=== PATIENT | female | born 1975 | race American Indian/Alaskan Native ===

== ENCOUNTER 2016-05-17 16:48 | Outpatient (CLI) | payer OTHER ==
--- NOTE | 2016-05-17 18:41 | Ultrasound Report ---
FINAL REPORT PROCEDURE: US RENAL RT TECHNIQUE: Real-time sonography in multiple planes of the kidneys, ureters and urinary bladder was performed with image documentation. CPT 11973 HISTORY: HYDRONEPHROSIS COMPARISON: No prior studies are available for comparison. FINDINGS: RIGHT kidney: There is moderate hydronephrosis, with dilatation of the renal pelvis and calices. Renal cortex measures 1.6 centimeters in thickness. Right kidney measures 13.6 x 6.0 x 6.0 centimeters. LEFT kidney: Absent. IMPRESSION: Moderate right hydronephrosis. Absent left kidney.
--- NOTE | 2016-05-17 18:44 | Ultrasound Report ---
FINAL REPORT PROCEDURE: US BLADDER RESIDUAL TECHNIQUE: Real-time sonography in multiple planes of the bladder was performed with image documentation. CPT 30474 HISTORY: HYDRONEPHROSIS COMPARISON: No prior studies are available for comparison. FINDINGS: Bladder: Normal appearance Volume Pre-void: 391 mL Volume Post-void: 15 mL Note is made of a prominent sized uterus. There is a central rounded hypoechoic mass with internal vascularity which measures 8.9 x 7.8 x 9.2 centimeters. This could be related to a large fibroid or other uterine mass. Recommend further evaluation. IMPRESSION: Postvoid volume is 15 milliliters. Large solid central uterine mass, which could be related to a submucosal fibroid or other uterine mass. Recommend further evaluation/gynecologic follow-up.
== END 2016-05-17 16:49 | disposition home or self-care (01) ==
LOC: US 16:48
PROVIDERS: ATTEND Internal Medicine Nephrology
DX: N13.30 Unspecified hydronephrosis (principal); N85.8 Other specified noninflammatory disorders of uterus; Z90.5 Acquired absence of kidney
CPT/HCPCS: 76775; 76857

== ENCOUNTER 2016-10-11 07:12 | Outpatient (CLI) | payer OTHER ==
--- NOTE | 2016-10-11 09:03 | Mammography Report ---
BILATERAL DIGITAL SCREENING MAMMOGRAM with CAD: 10/11/16 07:12:00 CLINICAL: Baseline screening. FINDINGS: The breasts are heterogeneously dense, which may obscure small masses. No mass, architectural distortion or suspicious calcifications. IMPRESSION: No mammographic evidence of malignancy. BI-RADS CATEGORY: 1 - - Negative RECOMMENDATION: Routine mammographic screening in one year. COMMENT: Patient follow-up letters are generated by our [employer] application.
== END 2016-10-11 07:13 | disposition home or self-care (01) ==
LOC: MAMMO 07:12
PROVIDERS: ATTEND Obstetrics & Gynecology
DX: Z12.31 Encounter for screening mammogram for malignant neoplasm of breast (principal)
CPT/HCPCS: 77067; G0202

== ENCOUNTER 2019-01-05 12:37 | Emergency (ER) | payer OTHER ==
[2019-01-05 12:43] VITALS: BP 144/85
--- NOTE | 2019-01-05 12:48 | Event Note ---
ED Screening Note Date of service: 01/05/19 Time: 12:45 ED Screening Note: This is a 43 y.o. F. that presents to the ER with right ankle pain for 1 month that is worsening. Patient states she fell 1 month ago. Reports a pulling sensation to right lateral ankle that is worse with weight. Taking NSAIDs, warm soaks, and ankle brace. This initial assessment/diagnostic orders/clinical plan/treatment(s) is/are subject to change based on patients health status, clinical progression and re-assessment by fellow clinical providers in the ED. Further treatment and workup at subsequent clinical providers discretion. Patient/guardian urged not to elope from the ED as their condition may be serious if not clinically assessed and managed. Initial orders include: XR of right ankle
--- NOTE | 2019-01-05 13:24 | XRay Report ---
RIGHT ANKLE 3 VIEWS INDICATION: lateral swelling and pain, r/o fx. COMPARISON: No relevant prior imaging study available. FINDINGS: No acute fracture or dislocation is seen. There is no ankle mortise widening. There is a thin linear foreign body which projects within the proximal first metatarsal. This could be related to prior surg gracia, correlate clinically. There is mild anterior soft tissue swelling. IMPRESSION: 1. No acute findings. Signer Name: Hernandez Torrez MD Signed: 01/05/2019 1:19 PM Workstation Name: [id number]
--- NOTE | 2019-01-05 13:38 | Emergency Department Report ---
ED Extremity Problem HPI - General Chief complaint: Extremity Injury, Lower Stated complaint: RT ANKLE PAIN Time Seen by Provider: 01/05/19 12:45 Source: patient Mode of arrival: Wheelchair Limitations: No Limitations - History of Present Illness Initial comments: Patient is a 43-year-old [place] female who states that for the past 2 month she's had some discomfort in the right ankle. Patient states feels unsteady. Patient states she fell approximately 3 weeks ago and the pain is worsened as well as her swelling. Patient states she can bear weight but there is pain. Patient states the pain is 8 out of 10 in severity and is aching throbbing is worse with bearing weight movement and better with rest. Patient states she is been icing the ankle (the pain will subside but however it has not. She has a fracture after the fall she suffered 3 weeks ago. - Related Data Home Medications Medication Instructions Recorded Confirmed Last Taken Folic Acid [Folvite] 1 mg PO QDAY 12/05/17 12/05/17 1 Day Ago ~12/04/17 [place]-3/Dha/Epa/Fish Oil [Fish Oil 1 each PO QDAY 12/05/17 12/05/17 Unknown 1,000 mg Softgel] PARoxetine [Paxil] 20 mg PO DAILY 12/05/17 12/05/17 1 Day Ago ~12/04/17 Ubidecarenone/Vit E Acet [Co Q-10 1 each PO QDAY 12/05/17 12/05/17 1 Day Ago 100 mg Softgel] ~12/04/17 Previous Rx's Medication Instructions Recorded Last Taken Type ALPRAZolam [Xanax TAB] 0.5 mg PO BID PRN #14 tab 12/05/17 Unknown Rx Ibuprofen [Motrin 600 MG tab] 600 mg PO Q8H PRN #20 tablet 01/05/19 Unknown Rx Allergies Allergy/AdvReac Type Severity Reaction Status Date / Time sulfamethoxazole Allergy Shortness Verified 12/05/17 03:45 [From Bactrim] of Breath trimethoprim [From Bactrim] Allergy Shortness Verified 12/05/17 03:45 of Breath ED Review of Systems ROS: Stated complaint: RT ANKLE PAIN Other details as noted in HPI Comment: All other systems reviewed and negative ED Past Medical Hx - Past Medical History Previous Medical History?: Yes Hx Renal Disease: Yes (right kidney stent, left kidney remove when she was kid) Hx Psychiatric Treatment: Yes (anxiety) Additional medical history: Right ankle pain - Surgical History Past Surgical History?: Yes Additional Surgical History: renal stent. left nephrectomy secondary to cysts, Partial hysterectomy - Social History Smoking Status: Never Smoker Substance Use Type: Prescribed - Medications Home Medications: Home Medications Medication Instructions Recorded Confirmed Last Taken Type ALPRAZolam [Xanax TAB] 0.5 mg PO BID PRN #14 tab 12/05/17 Unknown Rx Folic Acid [Folvite] 1 mg PO QDAY 12/05/17 12/05/17 1 Day Ago History ~12/04/17 [place]-3/Dha/Epa/Fish Oil [Fish Oil 1 each PO QDAY 12/05/17 12/05/17 Unknown History 1,000 mg Softgel] PARoxetine [Paxil] 20 mg PO DAILY 12/05/17 12/05/17 1 Day Ago History ~12/04/17 Ubidecarenone/Vit E Acet [Co Q-10 1 each PO QDAY 12/05/17 12/05/17 1 Day Ago History 100 mg Softgel] ~12/04/17 Ibuprofen [Motrin 600 MG tab] 600 mg PO Q8H PRN #20 tablet 01/05/19 Unknown Rx ED Physical Exam - General Limitations: No Limitations General appearance: alert, in no apparent distress - Head Head exam: Present: atraumatic, normocephalic - Eye Eye exam: Present: normal appearance, PERRL, EOMI - ENT ENT exam: Present: mucous membranes moist - Neck Neck exam: Present: normal inspection - Respiratory Respiratory exam: Present: normal lung sounds bilaterally. Absent: respiratory distress, wheezes, rales, rhonchi - Cardiovascular Cardiovascular Exam: Present: regular rate, normal rhythm. Absent: systolic murmur, diastolic murmur, rubs, gallop - GI/Abdominal GI/Abdominal exam: Present: soft, normal bowel sounds - Extremities Exam Extremities exam: Present: normal inspection - Expanded Lower Extremity Exam Right Knee exam: Present: normal inspection, full ROM Ankle exam: Present: tenderness, swelling. Absent: normal inspection, full ROM, abrasion, laceration, ecchymosis, deformity, crepidus, dislocation, erythema - Back Exam Back exam: Present: normal inspection - Neurological Exam Neurological exam: Present: alert, oriented X3 - Psychiatric Psychiatric exam: Present: normal affect, normal mood - Skin Skin exam: Present: warm, dry, intact, normal color. Absent: rash ED Course Vital Signs 01/05/19 12:40 Temperature 97.9 F Pulse Rate 73 Respiratory 18 Rate Blood Pressure 144/85 O2 Sat by Pulse 97 Oximetry ED Medical Decision Making - Radiology Data Radiology results: report reviewed - Medical Decision Making Patient placed in a air cast with Reynaldo wrap the patient be referred to orthopedics. Critical care attestation.: If time is entered above; I have spent that time in minutes in the direct care of this critically ill patient, excluding procedure time. ED Disposition Clinical Impression: Ankle sprain Qualifiers: Encounter type: initial encounter Involved ligament of ankle: anterior talofibular ligament Disposition: TO HOME OR SELFCARE Is pt being admited?: No Does the pt Need Aspirin: No Condition: Stable Instructions: Ankle Sprain (ED), Ankle Stirrup Splint (ED) Referrals: KEVIN ARCHIBALD MD [Staff Physician] - 3-5 Days Time of Disposition: 13:37
== END 2019-01-05 14:44 | disposition home or self-care (01) ==
LOC: ED 12:37
DX: S93.401A Sprain of unspecified ligament of right ankle, initial encounter (principal); F41.9 Anxiety disorder, unspecified; W18.30XA Fall on same level, unspecified, initial encounter; Y93.89 Activity, other specified; Y92.89 Other specified places as the place of occurrence of the external cause; Y99.8 Other external cause status

== ENCOUNTER 2019-04-27 23:25 | Emergency (ER) | payer OTHER ==
[2019-04-28] MEDS ORDERED: ACETAMINOPHEN 500 MG TAB PO ONE (01:06)
[2019-04-28 01:50] LABS: Basophils % (Auto) 0.4 % (0.0-1.8); Eosinophils # (Auto) 0.3 K/mm3 (0.0-0.4); Eosinophils % (Auto) 2.8 % (0.0-4.3); Hemoglobin 13.3 gm/dl (10.1-14.3); Lymphocytes # (Auto) 2.9 K/mm3 (1.2-5.4); Lymphocytes % (Auto) 30.4 % (13.4-35.0); Mean Corpuscular HGB Conc 35 % (30-34); Mean Corpuscular Volume 91 fl (79-97); Monocytes # (Auto) 0.6 K/mm3 (0.0-0.8); Monocytes % (Auto) 6.4 % (0.0-7.3); Platelet Count 270 K/mm3 (140-440); Red Blood Count 4.19 M/mm3 (3.65-5.03); Red Cell Distribution Width 13.6 % (13.2-15.2)
[2019-04-28 02:12] LABS: Alanine Aminotransferase 17 units/L (7-56); Albumin 3.9 g/dL (3.9-5); BUN/Creatinine Ratio 20; Blood Urea Nitrogen 16 mg/dL (7-17); Calcium 9.3 mg/dL (8.4-10.2); Hemolysis Index 9
[2019-04-28 02:40] LABS: Bacteria,Urine 1+ /HPF (Negative); Bilirubin,Urine NEG (Negative); Blood,Urine NEG (Negative); Color,Urine Straw (Yellow); Protein,Urine <15 mg/dL mg/dL (Negative); Urobilinogen,Urine < 2.0 mg/dL (<2.0); WBC,Urine < 1.0 /HPF (0.0-6.0)
--- NOTE | 2019-04-28 02:40 | XRay Report ---
CHEST 2 VIEWS INDICATION: Cough. COMPARISON: 12/04/2017 FINDINGS: Support devices: None. Heart: Within normal limits. Lungs/pleura: No acute air space or interstitial disease. No pneumothorax. Additional findings: None. IMPRESSION: 1. No acute findings. Signer Name: Bernardino Castrejon MD Signed: 04/28/2019 2:35 AM Workstation Name: [email or web address]
--- NOTE | 2019-04-28 08:05 | Emergency Department Report ---
- General Chief Complaint: Chest Pain Stated Complaint: CHEST PAIN/NAUSEA/SORE THROAT Time Seen by Provider: 04/28/19 07:24 Source: patient Mode of arrival: Ambulatory Limitations: No Limitations - History of Present Illness Initial Comments: This is a 44-year-old female nontoxic, well nourished in appearance, no acute signs of distress presents to the ED with c/o of productive cough, fever, chills, body aches, sore throat, rhinorrhea, nasal congestion x4 days. Patient stated has chest pains while coughing. Patient describes productive cough as yellow mucus production. Patient denies any sick contacts. Patient denies any recent travels, long car, recent hospital stays. Patient denies any calf pain or calf tenderness. Patient denies any chest pain, short of breath, nausea, vomiting, hemoptysis, numbness, tingling, headache or stiff neck. Patient stated allergies to Bactrim. MD Complaint: fever, cough, sore throat, rhinorrhea, nasal congestion -: days(s) (4) Severity: mild Severity scale (0 -10): 8 Quality: aching Consistency: constant Improves With: nothing Worsens With: nothing Associated Symptoms: fever, chills, rhinorrhea, nasal congestion, sore throat, cough. denies: myalgias, diaphoresis, headache, stiff neck, chest pain, shortn ess of breath, abdominal pain, nausea, vomiting, diarrhea, dysuria, rash, confusion, right sweats, weight loss, epistaxis, hoarseness, ear pain Treatments Prior to Arrival: none - Related Data Home Medications Medication Instructions Recorded Confirmed Last Taken Folic Acid [Folvite] 1 mg PO QDAY 12/05/17 12/05/17 1 Day Ago ~12/04/17 [place]-3/Dha/Epa/Fish Oil [Fish Oil 1 each PO QDAY 12/05/17 12/05/17 Unknown 1,000 mg Softgel] PARoxetine [Paxil] 20 mg PO DAILY 12/05/17 12/05/17 1 Day Ago ~12/04/17 Ubidecarenone/Vit E Acet [Co Q-10 1 each PO QDAY 12/05/17 12/05/17 1 Day Ago 100 mg Softgel] ~12/04/17 Previous Rx's Medication Instructions Recorded Last Taken Type ALPRAZolam [Xanax TAB] 0.5 mg PO BID PRN #14 tab 12/05/17 Unknown Rx Ibuprofen [Motrin 600 MG tab] 600 mg PO Q8H PRN #20 tablet 01/05/19 Unknown Rx Azithromycin [Zithromax Z-PEPITO] 250 mg PO DAILY #6 tablet 04/28/19 Unknown Rx Benzonatate [Tessalon Perles] 100 mg PO Q8HR PRN #20 capsule 04/28/19 Unknown Rx Ibuprofen [Motrin] 600 mg PO Q8H PRN #20 tablet 04/28/19 Unknown Rx Allergies Allergy/AdvReac Type Severity Reaction Status Date / Time sulfamethoxazole Allergy Shortness Verified 12/05/17 03:45 [From Bactrim] of Breath trimethoprim [From Bactrim] Allergy Shortness Verified 12/05/17 03:45 of Breath ED Review of Systems ROS: Stated complaint: CHEST PAIN/NAUSEA/SORE THROAT Other details as noted in HPI Constitutional: chills, fever Eyes: denies: eye pain, eye discharge, vision change ENT: ear pain, throat pain, congestion Respiratory: cough. denies: shortness of breath, wheezing Cardiovascular: chest pain. denies: palpitations Endocrine: no symptoms reported Gastrointestinal: denies: abdominal pain, nausea, diarrhea Genitourinary: denies: urgency, dysuria, discharge Musculoskeletal: denies: back pain, joint swelling, arthralgia Skin: denies: rash, lesions Neurological: denies: headache, weakness, paresthesias Psychiatric: denies: anxiety, depression Hematological/Lymphatic: denies: easy bleeding, easy bruising ED Past Medical Hx - Past Medical History Previous Medical History?: Yes Hx Renal Disease: Yes (right kidney stent, left kidney remove when she was kid) Hx Psychiatric Treatment: Yes (anxiety) Additional medical history: Right ankle pain - Surgical History Past Surgical History?: Yes Additional Surgical History: renal stent. left nephrectomy secondary to cysts, Partial hysterectomy - Social History Smoking Status: Never Smoker - Medications Home Medications: Home Medications Medication Instructions Recorded Confirmed Last Taken Type ALPRAZolam [Xanax TAB] 0.5 mg PO BID PRN #14 tab 12/05/17 Unknown Rx Folic Acid [Folvite] 1 mg PO QDAY 12/05/17 12/05/17 1 Day Ago History ~12/04/17 [place]-3/Dha/Epa/Fish Oil [Fish Oil 1 each PO QDAY 12/05/17 12/05/17 Unknown History 1,000 mg Softgel] PARoxetine [Paxil] 20 mg PO DAILY 12/05/17 12/05/17 1 Day Ago History ~12/04/17 Ubidecarenone/Vit E Acet [Co Q-10 1 each PO QDAY 12/05/17 12/05/17 1 Day Ago History 100 mg Softgel] ~12/04/17 Ibuprofen [Motrin 600 MG tab] 600 mg PO Q8H PRN #20 tablet 01/05/19 Unknown Rx Azithromycin [Zithromax Z-PEPITO] 250 mg PO DAILY #6 tablet 04/28/19 Unknown Rx Benzonatate [Tessalon Perles] 100 mg PO Q8HR PRN #20 capsule 04/28/19 Unknown Rx Ibuprofen [Motrin] 600 mg PO Q8H PRN #20 tablet 04/28/19 Unknown Rx ED Physical Exam - General Limitations: No Limitations General appearance: alert, in no apparent distress - Head Head exam: Present: atraumatic, normocephalic - Eye Eye exam: Present: normal appearance - Expanded ENT Exam Expanded Ear exam: Present: normal external inspection Mouth exam: Present: normal external inspection. Absent: drooling, trismus, muffled voice Teeth exam: Present: normal inspection Throat exam: Positive: tonsillar erythema. Negative: tonsillomegaly, tonsillar exudate, R peritonsillar mass, L peritonsillar mass - Neck Neck exam: Present: normal inspection, full ROM. Absent: tenderness, meningismus, lymphadenopathy - Respiratory Respiratory exam: Present: normal lung sounds bilaterally. Absent: respiratory distress, wheezes, rales, rhonchi, stridor, chest wall tenderness, accessory muscle use, decreased breath sounds, prolonged expiratory - Cardiovascular Cardiovascular Exam: Present: regular rate, normal rhythm, normal heart sounds. Absent: bradycardia, tachycardia, irregular rhythm, systolic murmur, diastolic murmur, rubs, gallop - GI/Abdominal GI/Abdominal exam: Present: soft, normal bowel sounds - Extremities Exam Extremities exam: Present: normal inspection, full ROM - Back Exam Back exam: Present: normal inspection, full ROM. Absent: tenderness, CVA tenderness (R), CVA tenderness (L), muscle spasm, paraspinal tenderness, vertebral tenderness, rash noted - Neurological Exam Neurological exam: Present: alert, oriented X3, normal gait - Psychiatric Psychiatric exam: Present: normal affect, normal mood - Skin Skin exam: Present: warm, dry, intact, normal color. Absent: rash ED Course Vital Signs 04/28/19 04/28/19 04/28/19 00:03 01:18 06:28 Temperature 100.0 F H 97.7 F Pulse Rate 69 65 Respiratory 18 20 16 Rate Blood Pressure 115/85 Blood Pressure 134/83 [Left] O2 Sat by Pulse 99 100 Oximetry - Reevaluation(s) Reevaluation #1: 04/28/19 08:06 Patient is speaking in full sentences with no signs of distress noted. ED Medical Decision Making - Lab Data Result diagrams: 04/28/19 01:19 04/28/19 01:19 - Medical Decision Making This is a 44-year-old female that presents with pharyngitis and bronchitis. Patient is stable and was examined by me. HECTOR and heart score of 0. Chest x- ray has been obtained and dictated by radiologist with normal exam. Patient is notified of x-ray results with no questions noted. Labs and chest x-ray obtained prior to me examining patient and labs are unremarkable. Patient will be discharged with azithromycin.. Patient was instructed to increase hydration, rest and take Motrin for fever episodes. Patient received motrin and tesslone perrls in the ED. Vitals stable. Patient is nonfebrile and normal heart rate. Patient was instructed Follow-up with a primary care doctor in 3-5 days or if symptoms worsen and continue return to emergency room as soon as possible. At time time of discharge, the patient does not seem toxic or ill in appearance. No acute signs of distress noted. Patient agrees to discharge treatment plan of care. No further questions noted by the patient. Critical care attestation.: If time is entered above; I have spent that time in minutes in the direct care of this critically ill patient, excluding procedure time. ED Disposition Clinical Impression: Bronchitis Pharyngitis Qualifiers: Pharyngitis/tonsillitis etiology: unspecified etiology Qualified Code(s): J02.9 - Acute pharyngitis, unspecified Disposition: - TO HOME OR SELFCARE Is pt being admited?: No Does the pt Need Aspirin: No Condition: Stable Instructions: Acute Bronchitis (ED), Pharyngitis (ED) Additional Instructions: Follow-up with a primary care doctor in 3-5 days or if symptoms worsen and continue return to emergency room as soon as possible. Increased rest, hydration, and take Motrin/Tylenol as prescribed for fever episo de. Prescriptions: Ibuprofen [Motrin] 600 mg PO Q8H PRN #20 tablet PRN Reason: Pain/Fever Benzonatate [Tessalon Perles] 100 mg PO Q8HR PRN #20 capsule PRN Reason: Cough Azithromycin [Zithromax Z-PEPITO] 250 mg PO DAILY #6 tablet Referrals: PRIMARY CAREMD [Primary Care Provider] - 3-5 Days KEENA LOPES MD [Staff Physician] - 3-5 Days [facility] [Outside] - 3-5 Days Forms: Work/School Release Form(ED)
[2019-04-28 08:32] VITALS: BP 131/78
== END 2019-04-28 08:30 | disposition home or self-care (01) ==
LOC: ED 23:25
DX: J40 Bronchitis, not specified as acute or chronic (principal); J02.9 Acute pharyngitis, unspecified; N28.9 Disorder of kidney and ureter, unspecified; F41.9 Anxiety disorder, unspecified; Z90.710 Acquired absence of both cervix and uterus; Z98.890 Other specified postprocedural states; Z79.1 Long term (current) use of non-steroidal anti-inflammatories (NSAID); Z79.899 Other long term (current) drug therapy; Z88.2 Allergy status to sulfonamides; Z88.8 Allergy status to other drugs, medicaments and biological substances
CPT/HCPCS: 36415; 71046; 80053; 81001; 84484; 84703; 85025

== ENCOUNTER 2019-09-30 00:48 | Emergency (ER) | payer OTHER ==
[2019-09-30] MEDS ORDERED: ASPIRIN 325 MG TAB PO ONE (01:06)
--- NOTE | 2019-09-30 01:40 | XRay Report ---
CHEST 1 VIEW 1:37 AM INDICATION / CLINICAL INFORMATION: Chest pain and difficulty breathing starting one hour ago. COMPARISON: 04/28/19. FINDINGS: SUPPORT DEVICES: None. HEART / MEDIASTINUM: The heart size and pulmonary vasculature are normal. The aorta is normal in rafaela elana. LUNGS / PLEURA: No significant pulmonary or pleural abnormality. No pneumothorax. ADDITIONAL FINDINGS: No significant additional findings. IMPRESSION: No acute abnormality or significant change. Signer Name: Finn Mercedes MD Signed: 09/30/2019 1:36 AM Workstation Name: [id number]
[2019-09-30 01:54] LABS: Basophils % (Auto) 0.5 % (0.0-1.8); Eosinophils # (Auto) 0.2 K/mm3 (0.0-0.4); Eosinophils % (Auto) 3.2 % (0.0-4.3); Hematocrit 37.8 % (30.3-42.9); Hemoglobin 12.8 gm/dl (10.1-14.3); Lymphocytes # (Auto) 1.6 K/mm3 (1.2-5.4); Lymphocytes % (Auto) 21.2 % (13.4-35.0); Mean Corpuscular HGB Conc 34 % (30-34); Mean Corpuscular Volume 90 fl (79-97); Monocytes # (Auto) 0.5 K/mm3 (0.0-0.8); Monocytes % (Auto) 6.7 % (0.0-7.3); Platelet Count 248 K/mm3 (140-440); Red Blood Count 4.19 M/mm3 (3.65-5.03); Red Cell Distribution Width 13.5 % (13.2-15.2)
[2019-09-30 02:17] LABS: BUN/Creatinine Ratio 12; Blood Urea Nitrogen 12 mg/dL (7-17); Hemolysis Index 6
--- NOTE | 2019-09-30 07:59 | Emergency Department Report ---
ED Anxiety HPI - General Chief Complaint: Chest Pain Stated Complaint: CHEST PAIN Time Seen by Provider: 09/30/19 07:44 Source: patient Mode of arrival: Ambulatory - History of Present Illness Initial Comments: Patient is a 44-year-old -[place] female who came to the emergency room last night with shortness of breath. She states that she has a history of anxiety and she thought that she was having an anxiety attack. However, her shortness of breath continued and it scared her so she came to the emergency room. Patient reports being on Paxil. However, she has recently self decreased her dose of Paxil to 10 mg daily. She states that she did this because she did not think she needed it. On time of exam at the 07 100-hour this morning, 5 hours after patient presented to the ER. Patient is calm with no shortness of breath. She denies any chest pain. She denies any HI or SI. She is on no other daily medications. She denies use of benzos. In conversing with patient I suspect that her anxiety, shortness of breath and concerns for the pandemic COVID resulted in her ER visit. All studies as ordered by nursing protocol were noted to be normal. -: Sudden, hour(s) Place: home Previous History of Same: Yes Severity: mild Quality: intermittant Provoking factors: emotional stress, medication change Improves With: medication Worsens With: thinking about event Associated symptoms: shortness of breath, denies other symptoms. denies: chest pain, palpitations, diaphoresis, confusion, cough, fever/chills, headaches, anorexia, malaise, nausea/vomiting, rash, seizure, syncope, weakness - Related Data Home Medications: Home Medications Medication Instructions Recorded Confirmed Last Taken Folic Acid [Folvite] 1 mg PO QDAY 12/05/17 12/05/17 1 Day Ago ~12/04/17 [place]-3/Dha/Epa/Fish Oil [Fish Oil 1 each PO QDAY 12/05/17 12/05/17 Unknown 1,000 mg Softgel] PARoxetine [Paxil] 20 mg PO DAILY 12/05/17 12/05/17 1 Day Ago ~12/04/17 Ubidecarenone/Vit E Acet [Co Q-10 1 each PO QDAY 12/05/17 12/05/17 1 Day Ago 100 mg Softgel] ~12/04/17 Previous Rx's Medication Instructions Recorded Last Taken Type ALPRAZolam [Xanax TAB] 0.5 mg PO BID PRN #14 tab 12/05/17 Unknown Rx Ibuprofen [Motrin 600 MG tab] 600 mg PO Q8H PRN #20 tablet 01/05/19 Unknown Rx Azithromycin [Zithromax Z-PEPITO] 250 mg PO DAILY #6 tablet 04/28/19 Unknown Rx Benzonatate [Tessalon Perles] 100 mg PO Q8HR PRN #20 capsule 04/28/19 Unknown Rx Ibuprofen [Motrin] 600 mg PO Q8H PRN #20 tablet 04/28/19 Unknown Rx Allergies/Adverse Reactions: Allergies Allergy/AdvReac Type Severity Reaction Status Date / Time sulfamethoxazole Allergy Shortness Verified 12/05/17 03:45 [From Bactrim] of Breath trimethoprim [From Bactrim] Allergy Shortness Verified 12/05/17 03:45 of Breath ED Review of Systems ROS: Stated complaint: CHEST PAIN Other details as noted in HPI Comment: All other systems reviewed and negative ED Past Medical Hx - Past Medical History Previous Medical History?: Yes Hx Renal Disease: Yes (right kidney stent, left kidney remove when she was kid) Hx Psychiatric Treatment: Yes (anxiety) Additional medical history: Right ankle pain - Surgical History Past Surgical History?: Yes Additional Surgical History: renal stent. left nephrectomy secondary to cysts, Partial hysterectomy - Family History Family history: no significant - Social History Smoking Status: Never Smoker Substance Use Type: None - Medications Home Medications: Home Medications Medication Instructions Recorded Confirmed Last Taken Type ALPRAZolam [Xanax TAB] 0.5 mg PO BID PRN #14 tab 12/05/17 Unknown Rx Folic Acid [Folvite] 1 mg PO QDAY 12/05/17 12/05/17 1 Day Ago History ~12/04/17 [place]-3/Dha/Epa/Fish Oil [Fish Oil 1 each PO QDAY 12/05/17 12/05/17 Unknown History 1,000 mg Softgel] PARoxetine [Paxil] 20 mg PO DAILY 12/05/17 12/05/17 1 Day Ago History ~12/04/17 Ubidecarenone/Vit E Acet [Co Q-10 1 each PO QDAY 12/05/17 12/05/17 1 Day Ago History 100 mg Softgel] ~12/04/17 Ibuprofen [Motrin 600 MG tab] 600 mg PO Q8H PRN #20 tablet 01/05/19 Unknown Rx Azithromycin [Zithromax Z-PEPITO] 250 mg PO DAILY #6 tablet 04/28/19 Unknown Rx Benzonatate [Tessalon Perles] 100 mg PO Q8HR PRN #20 capsule 04/28/19 Unknown Rx Ibuprofen [Motrin] 600 mg PO Q8H PRN #20 tablet 04/28/19 Unknown Rx ED Physical Exam - General Limitations: No Limitations General appearance: alert, in no apparent distress - Head Head exam: Present: atraumatic, normocephalic - Eye Eye exam: Present: normal appearance - ENT ENT exam: Present: mucous membranes moist - Neck Neck exam: Present: normal inspection - Respiratory Respiratory exam: Present: normal lung sounds bilaterally. Absent: respiratory distress - Cardiovascular Cardiovascular Exam: Present: regular rate, normal rhythm. Absent: systolic murmur, diastolic murmur, rubs, gallop - GI/Abdominal GI/Abdominal exam: Present: soft, normal bowel sounds - Extremities Exam Extremities exam: Present: normal inspection - Back Exam Back exam: Present: normal inspection - Neurological Exam Neurological exam: Present: alert, oriented X3 - Psychiatric Psychiatric exam: Present: normal affect, normal mood - Skin Skin exam: Present: warm, dry, intact, normal color. Absent: rash ED Course Vital Signs 09/30/19 09/30/19 09/30/19 01:06 01:08 08:02 Temperature 98.4 F 98.3 F Pulse Rate 60 57 L Respiratory 16 18 Rate Blood Pressure 128/76 141/86 O2 Sat by Pulse 100 99 Oximetry ED Medical Decision Making - Lab Data Result diagrams: 09/30/19 01:41 09/30/19 01:41 - EKG Data Rate: normal - EKG Data When compared to previous EKG there are: no significant change Interpretation: no acute changes - Radiology Data Radiology results: report reviewed, image reviewed - Medical Decision Making See HPI. Studies as ordered by nursing protocol normal. Vital Signs 09/30/19 09/30/19 09/30/19 01:06 01:08 08:02 Temperature 98.4 F 98.3 F Pulse Rate 60 57 L Respiratory 16 18 Rate Blood Pressure 128/76 141/86 O2 Sat by Pulse 100 99 Oximetry Lab Results 09/30/19 09/30/19 09/30/19 Range/Units 01:41 01:41 04:43 WBC 7.5 (4.5-11.0) K/mm3 RBC 4.19 (3.65-5.03) M/mm3 Hgb 12.8 (10.1-14.3) gm/dl Hct 37.8 (30.3-42.9) % MCV 90 (79-97) fl MCH 31 (28-32) pg MCHC 34 (30-34) % RDW 13.5 (13.2-15.2) % Plt Count 248 (140-440) K/mm3 Lymph % (Auto) 21.2 (13.4-35.0) % [place] % (Auto) 6.7 (0.0-7.3) % Eos % (Auto) 3.2 (0.0-4.3) % Baso % (Auto) 0.5 (0.0-1.8) % Lymph # 1.6 (1.2-5.4) K/mm3 [place] # 0.5 (0.0-0.8) K/mm3 Eos # 0.2 (0.0-0.4) K/mm3 Baso # 0.0 (0.0-0.1) K/mm3 Seg Neutrophils % 68.4 (40.0-70.0) % Seg Neutrophils # 5.1 (1.8-7.7) K/mm3 Sodium 137 (137-145) mmol/L Potassium 3.6 (3.6-5.0) mmol/L Chloride 101.9 (98-107) mmol/L Carbon Dioxide 24 (22-30) mmol/L Anion Gap 15 mmol/L BUN 12 (7-17) mg/dL Creatinine 1.0 (0.7-1.2) mg/dL Estimated GFR > 60 ml/min BUN/Creatinine Ratio 12 % Glucose 105 H (65-100) mg/dL Calcium 9.0 (8.4-10.2) mg/dL Troponin T < 0.010 < 0.010 (0.00-0.029) ng/mL 09/30/19 Range/Units 07:13 WBC (4.5-11.0) K/mm3 RBC (3.65-5.03) M/mm3 Hgb (10.1-14.3) gm/dl Hct (30.3-42.9) % MCV (79-97) fl MCH (28-32) pg MCHC (30-34) % RDW (13.2-15.2) % Plt Count (140-440) K/mm3 Lymph % (Auto) (13.4-35.0) % [place] % (Auto) (0.0-7.3) % Eos % (Auto) (0.0-4.3) % Baso % (Auto) (0.0-1.8) % Lymph # (1.2-5.4) K/mm3 [place] # (0.0-0.8) K/mm3 Eos # (0.0-0.4) K/mm3 Baso # (0.0-0.1) K/mm3 Seg Neutrophils % (40.0-70.0) % Seg Neutrophils # (1.8-7.7) K/mm3 Sodium (137-145) mmol/L Potassium (3.6-5.0) mmol/L Chloride (98-107) mmol/L Carbon Dioxide (22-30) mmol/L Anion Gap mmol/L BUN (7-17) mg/dL Creatinine (0.7-1.2) mg/dL Estimated GFR ml/min BUN/Creatinine Ratio % Glucose (65-100) mg/dL Calcium (8.4-10.2) mg/dL Troponin T < 0.010 (0.00-0.029) ng/mL Patient reassured. Patient being discharged home with discharge plan of care including PCP follow-up. She has been instructed to continue her Paxil 20 mg as prescribed by her provider until such time that they would decrease it. Patient verbalizes understanding of discharge plan of care - Differential Diagnosis anxiety Critical care attestation.: If time is entered above; I have spent that time in minutes in the direct care of this critically ill patient, excluding procedure time. ED Disposition Clinical Impression: Anxiety Disposition: - TO HOME OR SELFCARE Is pt being admited?: No Does the pt Need Aspirin: No Condition: Stable Instructions: Anxiety (ED) Additional Instructions: CONTINUE PAXIL Referrals: PRIMARY MD TOBY [Primary Care Provider] - 3-5 Days KEENA LOPES MD [Staff Physician] - 3-5 Days Time of Disposition: 07:56
[2019-09-30 08:04] VITALS: BP 141/86
== END 2019-09-30 08:04 | disposition home or self-care (01) ==
LOC: ED 00:48
DX: F41.9 Anxiety disorder, unspecified (principal); Z90.710 Acquired absence of both cervix and uterus; Z98.890 Other specified postprocedural states; Z79.899 Other long term (current) drug therapy; Z88.6 Allergy status to analgesic agent
CPT/HCPCS: 36415; 71045; 80048; 84484; 85025; 93005

== ENCOUNTER 2020-04-27 00:40 | Emergency (ER) | payer OTHER ==
--- NOTE | 2020-04-27 01:12 | Event Note ---
ED Screening Note Date of service: 04/27/20 Time: 01:10 ED Screening Note: Pt c/o lower abdominal pain, R flank pain, and bilateral leg achiness x 3 weeks +urinary frequency denies dysuria or hematuria hx of 1 kidney This initial assessment/diagnostic orders/clinical plan/treatment(s) is/are s ubject to change based on patients health status, clinical progression and re- assessment by fellow clinical providers in the ED. Further treatment and workup at subsequent clinical providers discretion. Patient/guardian urged not to elope from the ED as their condition may be serious if not clinically assessed and managed. Initial orders include: labs
[2020-04-27 02:10] LABS: Bacteria,Urine 1+ /HPF (Negative)
[2020-04-27 02:12] LABS: Basophils % (Auto) 0.4 % (0.0-1.8); Eosinophils # (Auto) 0.3 K/mm3 (0.0-0.4); Eosinophils % (Auto) 2.9 % (0.0-4.3); Hematocrit 38.2 % (30.3-42.9); Lymphocytes # (Auto) 2.5 K/mm3 (1.2-5.4); Lymphocytes % (Auto) 28.6 % (13.4-35.0); Mean Corpuscular HGB Conc 34 % (30-34); Mean Corpuscular Volume 93 fl (79-97); Monocytes # (Auto) 0.5 K/mm3 (0.0-0.8); Monocytes % (Auto) 5.3 % (0.0-7.3); Platelet Count 230 K/mm3 (140-440); Red Cell Distribution Width 13.1 % (13.2-15.2)
[2020-04-27 02:31] LABS: Alanine Aminotransferase 11 units/L (7-56); Albumin 3.8 g/dL (3.9-5); BUN/Creatinine Ratio 20; Blood Urea Nitrogen 16 mg/dL (7-17); Calcium 8.8 mg/dL (8.4-10.2); Hemolysis Index 3
[2020-04-27 02:43] LABS: Bilirubin,Urine NEG (Negative); Blood,Urine NEG (Negative); Color,Urine Colorless (Yellow); Protein,Urine <15 mg/dL mg/dL (Negative); Urobilinogen,Urine < 2.0 mg/dL (<2.0)
--- NOTE | 2020-04-27 04:30 | Ultrasound Report ---
ULTRASOUND ABDOMEN, LIMITED (RIGHT UPPER QUADRANT) INDICATION: Abdominal pain. COMPARISON: None available. FINDINGS: PANCREAS: No significant abnormality. LIVER: No significant abnormality. GALLBLADDER: No significant abnormality. BILE DUCTS: No significant abnormality. Common bile duct measures 3.2 mm. FREE FLUID: None. ADDITIONAL FINDINGS: None. IMPRESSION: No significant sonographic abnormality of the right upper quadrant. Signer Name: Finn Mercedes MD Signed: 04/27/2020 4:25 AM Workstation Name: [id number]
--- NOTE | 2020-04-27 05:08 | Emergency Department Report ---
ED General Adult HPI - General Chief complaint: Abdominal Pain Stated complaint: ABD/BACK/LEG PAIN Source: patient Mode of arrival: Ambulatory Limitations: No Limitations - History of Present Illness Initial comments: 45-year-old -[place] female patient presents with complaints of lower abdominal pain, right flank pain, and bilateral leg pain x3 weeks. She states her symptoms have been worsening over the past few days. She has history of left kidney removal due to polycystic kidney disease. She denies any hematuria/dysuria, dyspareunia/vaginal discharge/vaginal bleeding, fever/chills/sweats, nausea/vomiting/diarrhea, melena/hematochezia, chest pain, or shortness of breath. She admits to urinary frequency. Patient states the pain occurs in her legs with changes in position and her back and seems to be worse at night. She denies any numbness/tingling/weakness in her legs or swelling in her legs. Patient also denies any hemoptysis history of DVT/PE, recent long travel/surgeries, cancer, or hormone use. Patient rates her current pain as a 7/10 in severity. Severity scale (0 -10): 9 - Related Data Home Medications Medication Instructions Recorded Confirmed Last Taken Folic Acid [Folvite] 1 mg PO QDAY 12/05/17 12/05/17 1 Day Ago ~12/04/17 [place]-3/Dha/Epa/Fish Oil [Fish Oil 1 each PO QDAY 12/05/17 12/05/17 Unknown 1,000 mg Softgel] PARoxetine [Paxil] 20 mg PO DAILY 12/05/17 12/05/17 1 Day Ago ~12/04/17 Ubidecarenone/Vit E Acet [Co Q-10 1 each PO QDAY 12/05/17 12/05/17 1 Day Ago 100 mg Softgel] ~12/04/17 Previous Rx's Medication Instructions Recorded Last Taken Type ALPRAZolam [Xanax TAB] 0.5 mg PO BID PRN #14 tab 12/05/17 Unknown Rx Ibuprofen [Motrin 600 MG tab] 600 mg PO Q8H PRN #20 tablet 01/05/19 Unknown Rx Azithromycin [Zithromax Z-PEPITO] 250 mg PO DAILY #6 tablet 04/28/19 Unknown Rx Benzonatate [Tessalon Perles] 100 mg PO Q8HR PRN #20 capsule 04/28/19 Unknown Rx Ibuprofen [Motrin] 600 mg PO Q8H PRN #20 tablet 04/28/19 Unknown Rx Meloxicam [Mobic] 15 mg PO QDAY PRN #7 tablet 04/27/20 Unknown Rx methOCARBAMOL [Robaxin TAB] 1,500 mg PO Q8H PRN #20 tablet 04/27/20 Unknown Rx predniSONE [Deltasone] 20 mg PO BID 3 Days #6 tab 04/27/20 Unknown Rx Allergies Allergy/AdvReac Type Severity Reaction Status Date / Time sulfamethoxazole Allergy Shortness Verified 12/05/17 03:45 [From Bactrim] of Breath trimethoprim [From Bactrim] Allergy Shortness Verified 12/05/17 03:45 of Breath ED Review of Systems ROS: Stated complaint: ABD/BACK/LEG PAIN Other details as noted in HPI Constitutional: denies: chills, fever, malaise ENT: denies: throat pain Respiratory: denies: cough, shortness of breath Cardiovascular: denies: chest pain Endocrine: denies: excessive sweating Gastrointestinal: abdominal pain. denies: nausea, vomiting, diarrhea, constipation, hematemesis, melena, hematochezia Genitourinary: frequency. denies: urgency, dysuria, hematuria, discharge, abnormal menses, dyspareunia Musculoskeletal: denies: joint swelling Skin: denies: rash, lesions, change in color Neurological: denies: headache Hematological/Lymphatic: denies: swollen glands ED Past Medical Hx - Past Medical History Previous Medical History?: Yes Hx Renal Disease: Yes (right kidney stent, left kidney remove when she was kid) Hx Psychiatric Treatment: Yes (anxiety) Additional medical history: Right ankle pain - Surgical History Past Surgical History?: Yes Additional Surgical History: renal stent. left nephrectomy secondary to cysts, Partial hysterectomy - Social History Smoking Status: Never Smoker Substance Use Type: None - Medications Home Medications: Home Medications Medication Instructions Recorded Confirmed Last Taken Type ALPRAZolam [Xanax TAB] 0.5 mg PO BID PRN #14 tab 12/05/17 Unknown Rx Folic Acid [Folvite] 1 mg PO QDAY 12/05/17 12/05/17 1 Day Ago History ~12/04/17 [place]-3/Dha/Epa/Fish Oil [Fish Oil 1 each PO QDAY 12/05/17 12/05/17 Unknown History 1,000 mg Softgel] PARoxetine [Paxil] 20 mg PO DAILY 12/05/17 12/05/17 1 Day Ago History ~12/04/17 Ubidecarenone/Vit E Acet [Co Q-10 1 each PO QDAY 12/05/17 12/05/17 1 Day Ago History 100 mg Softgel] ~12/04/17 Ibuprofen [Motrin 600 MG tab] 600 mg PO Q8H PRN #20 tablet 01/05/19 Unknown Rx Azithromycin [Zithromax Z-PEPITO] 250 mg PO DAILY #6 tablet 04/28/19 Unknown Rx Benzonatate [Tessalon Perles] 100 mg PO Q8HR PRN #20 capsule 04/28/19 Unknown Rx Ibuprofen [Motrin] 600 mg PO Q8H PRN #20 tablet 04/28/19 Unknown Rx Meloxicam [Mobic] 15 mg PO QDAY PRN #7 tablet 04/27/20 Unknown Rx methOCARBAMOL [Robaxin TAB] 1,500 mg PO Q8H PRN #20 tablet 04/27/20 Unknown Rx predniSONE [Deltasone] 20 mg PO BID 3 Days #6 tab 04/27/20 Unknown Rx ED Physical Exam - General Limitations: No Limitations General appearance: alert, in no apparent distress - Head Head exam: Present: atraumatic, normocephalic - Eye Eye exam: Present: normal appearance. Absent: scleral icterus - ENT ENT exam: Present: normal exam - Neck Neck exam: Present: normal inspection - Respiratory Respiratory exam: Present: normal lung sounds bilaterally. Absent: respiratory distress - Cardiovascular Cardiovascular Exam: Present: regular rate, normal rhythm. Absent: systolic murmur, diastolic murmur, rubs, gallop - GI/Abdominal GI/Abdominal exam: Present: soft, tenderness (Mild right upper quadrant), normal bowel sounds. Absent: distended, guarding, rebound, rigid - Extremities Exam Extremities exam: Present: full ROM. Absent: calf tenderness (No swelling or tenderness noted to legs bilaterally on exam) - Back Exam Back exam: Present: normal inspection, CVA tenderness (R) (Mild). Absent: CVA tenderness (L) - Neurological Exam Neurological exam: Present: alert, oriented X3, normal gait. Absent: motor sensory deficit - Psychiatric Psychiatric exam: Present: normal affect, normal mood - Skin Skin exam: Present: warm, dry, intact, normal color. Absent: rash, diaphoretic, erythema, petechiae, ecchymosis ED Course Vital Signs 04/27/20 00:57 Temperature 98.1 F Pulse Rate 66 Respiratory 14 Rate Blood Pressure 138/81 [Left] O2 Sat by Pulse 98 Oximetry ED Medical Decision Making - Lab Data Result diagrams: 04/27/20 01:28 04/27/20 01:28 Lab Results 04/27/20 04/27/20 04/27/20 Range/Units 01:27 01:28 01:28 WBC 8.8 (4.5-11.0) K/mm3 RBC 4.10 (3.65-5.03) M/mm3 Hgb 13.0 (10.1-14.3) gm/dl Hct 38.2 (30.3-42.9) % MCV 93 (79-97) fl MCH 32 (28-32) pg MCHC 34 (30-34) % RDW 13.1 L (13.2-15.2) % Plt Count 230 (140-440) K/mm3 Lymph % (Auto) 28.6 (13.4-35.0) % [place] % (Auto) 5.3 (0.0-7.3) % Eos % (Auto) 2.9 (0.0-4.3) % Baso % (Auto) 0.4 (0.0-1.8) % Lymph # (Auto) 2.5 (1.2-5.4) K/mm3 [place] # (Auto) 0.5 (0.0-0.8) K/mm3 Eos # (Auto) 0.3 (0.0-0.4) K/mm3 Baso # (Auto) 0.0 (0.0-0.1) K/mm3 Seg Neutrophils % 62.8 (40.0-70.0) % Seg Neutrophils # 5.6 (1.8-7.7) K/mm3 Sodium 137 (137-145) mmol/L Potassium 4.6 (3.6-5.0) mmol/L Chloride 101.3 (98-107) mmol/L Carbon Dioxide 26 (22-30) mmol/L Anion Gap 14 mmol/L BUN 16 (7-17) mg/dL Creatinine 0.8 (0.6-1.2) mg/dL Estimated GFR > 60 ml/min BUN/Creatinine Ratio 20 % Glucose 92 (65-100) mg/dL Calcium 8.8 (8.4-10.2) mg/dL Total Bilirubin 0.20 (0.1-1.2) mg/dL AST 16 (5-40) units/L ALT 11 (7-56) units/L Alkaline Phosphatase 75 (35-129) units/L Total Protein 7.4 (6.3-8.2) g/dL Albumin 3.8 L (3.9-5) g/dL Albumin/Globulin Ratio 1.1 % Lipase 52 (13-60) units/L HCG, Qual (Negative) Urine Color Colorless (Yellow) Urine Turbidity Clear (Clear) Urine pH 6.0 (5.0-7.0) Ur Specific [place] 1.004 (1.003-1.030) Urine Protein <15 mg/dl (Negative) mg/dL Urine Glucose (UA) Neg (Negative) mg/dL Urine Ketones Neg (Negative) mg/dL Urine Blood Neg (Negative) Urine Nitrite Neg (Negative) Ur Reducing Substances Not Reportable Urine Bilirubin Neg (Negative) Urine Ictotest Not Reportable Urine Urobilinogen < 2.0 (<2.0) mg/dL Ur Leukocyte Esterase Neg (Negative) Urine WBC (Auto) 1.0 (0.0-6.0) /HPF Urine RBC (Auto) 1.0 (0.0-6.0) /HPF U Epithel Cells (Auto) 1.0 (0-13.0) /HPF Urine Bacteria (Auto) 1+ (Negative) /HPF 04/27/20 Range/Units 01:28 WBC (4.5-11.0) K/mm3 RBC (3.65-5.03) M/mm3 Hgb (10.1-14.3) gm/dl Hct (30.3-42.9) % MCV (79-97) fl MCH (28-32) pg MCHC (30-34) % RDW (13.2-15.2) % Plt Count (140-440) K/mm3 Lymph % (Auto) (13.4-35.0) % [place] % (Auto) (0.0-7.3) % Eos % (Auto) (0.0-4.3) % Baso % (Auto) (0.0-1.8) % Lymph # (Auto) (1.2-5.4) K/mm3 [place] # (Auto) (0.0-0.8) K/mm3 Eos # (Auto) (0.0-0.4) K/mm3 Baso # (Auto) (0.0-0.1) K/mm3 Seg Neutrophils % (40.0-70.0) % Seg Neutrophils # (1.8-7.7) K/mm3 Sodium (137-145) mmol/L Potassium (3.6-5.0) mmol/L Chloride (98-107) mmol/L Carbon Dioxide (22-30) mmol/L Anion Gap mmol/L BUN (7-17) mg/dL Creatinine (0.6-1.2) mg/dL Estimated GFR ml/min BUN/Creatinine Ratio % Glucose (65-100) mg/dL Calcium (8.4-10.2) mg/dL Total Bilirubin (0.1-1.2) mg/dL AST (5-40) units/L ALT (7-56) units/L Alkaline Phosphatase (35-129) units/L Total Protein (6.3-8.2) g/dL Albumin (3.9-5) g/dL Albumin/Globulin Ratio % Lipase (13-60) units/L HCG, Qual Negative (Negative) Urine Color (Yellow) Urine Turbidity (Clear) Urine pH (5.0-7.0) Ur Specific [place] (1.003-1.030) Urine Protein (Negative) mg/dL Urine Glucose (UA) (Negative) mg/dL Urine Ketones (Negative) mg/dL Urine Blood (Negative) Urine Nitrite (Negative) Ur Reducing Substances Urine Bilirubin (Negative) Urine Ictotest Urine Urobilinogen (<2.0) mg/dL Ur Leukocyte Esterase (Negative) Urine WBC (Auto) (0.0-6.0) /HPF Urine RBC (Auto) (0.0-6.0) /HPF U Epithel Cells (Auto) (0-13.0) /HPF Urine Bacteria (Auto) (Negative) /HPF - Radiology Data Radiology results: report reviewed ULTRASOUND ABDOMEN, LIMITED (RIGHT UPPER QUADRANT) INDICATION: Abdominal pain. COMPARISON: None available. FINDINGS: PANCREAS: No significant abnormality. LIVER: No significant abnormality. GALLBLADDER: No significant abnormality. BILE DUCTS: No significant abnormality. Common bile duct measures 3.2 mm. FREE FLUID: None. ADDITIONAL FINDINGS: None. IMPRESSION: No significant sonographic abnormality of the right upper quadrant. - Medical Decision Making 45-year-old -[place] female patient presents with complaints of lower abdominal pain, right flank pain, and bilateral leg pain x3 weeks. She states her symptoms have been worsening over the past few days. She has history of left kidney removal due to polycystic kidney disease. She denies any hematuria/dysuria, dyspareunia/vaginal discharge/vaginal bleeding, fever/chills/sweats, nausea/vomiting/diarrhea, melena/hematochezia, chest pain, or shortness of breath. She admits to urinary frequency. Patient states the pain occurs in her legs with changes in position and her back and seems to be worse at night. She denies any numbness/tingling/weakness in her legs or swelling in her legs. Patient also denies any hemoptysis history of DVT/PE, recent long travel/surgeries, cancer, or hormone use. Patient rates her current pain as a 7/10 in severity. No rebound or guarding of abdomen noted on exam. CBC, CMP, lipase, UA are without acute abnormalities. Right upper quadrant ultrasound is negative for any acute abnormalities. Her vitals are normal, she is well-appearing, patient is stable for discharge home and follow-up with her primary care doctor. Patient did have a positive straight leg raise test therefore we will treat her for sciatica. Discussed signs and symptoms that should prompt immediate return to the emergency department in detail with patient who verbalizes understanding. Critical care attestation.: If time is entered above; I have spent that time in minutes in the direct care of this critically ill patient, excluding procedure time. ED Disposition Clinical Impression: Low back pain with bilateral sciatica Qualifiers: Chronicity: acute Back pain laterality: bilateral Qualified Code(s): M54.42 - Lumbago with sciatica, left side; M54.41 - Lumbago with sciatica, right side Disposition: TO HOME OR SELFCARE Is pt being admited?: No Condition: Stable Instructions: Abdominal Pain (ED), Sciatica Prescriptions: predniSONE [Deltasone] 20 mg PO BID 3 Days #6 tab Meloxicam [Mobic] 15 mg PO QDAY PRN #7 tablet PRN Reason: pain methOCARBAMOL [Robaxin TAB] 1,500 mg PO Q8H PRN #20 tablet PRN Reason: muscle spasm/tightness Referrals: PRIMARY CARE, [Primary Care Provider] - 3-5 Days
[2020-04-27 05:23] VITALS: BP 131/72
== END 2020-04-27 05:34 | disposition home or self-care (01) ==
LOC: ED 00:40
DX: M54.42 Lumbago with sciatica, left side (principal); M54.41 Lumbago with sciatica, right side; F41.9 Anxiety disorder, unspecified; Z98.890 Other specified postprocedural states; Z79.1 Long term (current) use of non-steroidal anti-inflammatories (NSAID); Z79.2 Long term (current) use of antibiotics; Z79.899 Other long term (current) drug therapy; Z88.8 Allergy status to other drugs, medicaments and biological substances
CPT/HCPCS: 36415; 76705; 80053; 81001; 83690; 84703; 85025

== ENCOUNTER 2021-02-18 12:54 | Emergency (ER) | payer OTHER ==
[2021-02-18 13:04] VITALS: BP 117/83
--- NOTE | 2021-02-18 13:29 | Emergency Department Report ---
ED General Adult HPI - General Chief complaint: Medical Clearance Stated complaint: MED REFILL FOR PAXIL Time Seen by Provider: 02/18/21 13:08 Source: patient, RN notes reviewed, old records reviewed Mode of arrival: Ambulatory Limitations: No Limitations - History of Present Illness Initial comments: Patient is a pleasant 46-year-old female. She is status post hysterectomy in the distant past and reports that she is not . She presents to the ER today with a primary complaint of request for Paxil refill. Patient states she has been on this medication for about 4 5 years. She reports that she is following up with her primary care doctor on March 03, but reports that her outpatient prescription ran out, she has run out of refills, and "there is a new doctor at the office, and he will not call in a prescription until he sees me in person." The patient reports that she has had withdrawal symptoms from Paxil Running out in the past, manifest by headache, and dizziness and nausea. The patient admits to resolved headache, resolved nausea and resolved dizziness, but the dizziness is not described as loss of consciousness, syncope or near syncope. Patient denies travel, surgery, immobilization, DVT/PE risk factors She denies hematemesis and bright red blood per rectum. She is a little bit anxious, but she is not homicidal or suicidal. Her primary complaint is request for Paxil refill -: Gradual, days(s) Location: head Severity scale (0 -10): 0 Consistency: intermittent Improves with: other (Taking her Paxil) Worsens with: other (Anxiety, stress, running out of medication) - Related Data Home Medications Medication Instructions Recorded Confirmed Last Taken Folic Acid [Folvite] 1 mg PO QDAY 12/05/17 12/05/17 1 Day Ago ~12/04/17 [place]-3/Dha/Epa/Fish Oil [Fish Oil 1 each PO QDAY 12/05/17 12/05/17 Unknown 1,000 mg Softgel] Ubidecarenone/Vit E Acet [Co Q-10 1 each PO QDAY 12/05/17 12/05/17 1 Day Ago 100 mg Softgel] ~12/04/17 Previous Rx's Medication Instructions Recorded Last Taken Type ALPRAZolam [Xanax TAB] 0.5 mg PO BID PRN #14 tab 12/05/17 Unknown Rx Ibuprofen [Motrin 600 MG tab] 600 mg PO Q8H PRN #20 tablet 01/05/19 Unknown Rx Azithromycin [Zithromax Z-PEPITO] 250 mg PO DAILY #6 tablet 04/28/19 Unknown Rx Benzonatate [Tessalon Perles] 100 mg PO Q8HR PRN #20 capsule 04/28/19 Unknown Rx Ibuprofen [Motrin] 600 mg PO Q8H PRN #20 tablet 04/28/19 Unknown Rx Meloxicam [Mobic] 15 mg PO QDAY PRN #7 tablet 04/27/20 Unknown Rx methOCARBAMOL [Robaxin TAB] 1,500 mg PO Q8H PRN #20 tablet 04/27/20 Unknown Rx predniSONE [Deltasone] 20 mg PO BID 3 Days #6 tab 04/27/20 Unknown Rx PARoxetine [Paxil] 20 mg PO DAILY #16 tab 02/18/21 Unknown Rx Allergies Allergy/AdvReac Type Severity Reaction Status Date / Time sulfamethoxazole Allergy Shortness Verified 12/05/17 03:45 [From Bactrim] of Breath trimethoprim [From Bactrim] Allergy Shortness Verified 12/05/17 03:45 of Breath ED Review of Systems ROS: Stated complaint: MED REFILL FOR PAXIL Other details as noted in HPI Constitutional: denies: fever Eyes: denies: eye discharge, vision change ENT: denies: epistaxis Respiratory: denies: cough Cardiovascular: denies: chest pain Gastrointestinal: nausea. denies: vomiting Genitourinary: denies: dysuria Neurological: headache. denies: weakness Psychiatric: anxiety. denies: homicidal thoughts, suicidal thoughts ED Past Medical Hx - Past Medical History Hx Renal Disease: Yes (right kidney stent, left kidney remove when she was kid) Hx Psychiatric Treatment: Yes (anxiety) Additional medical history: Right ankle pain - Surgical History Additional Surgical History: renal stent. left nephrectomy secondary to cysts, Partial hysterectomy - Social History Smoking Status: Never Smoker - Medications Home Medications: Home Medications Medication Instructions Recorded Confirmed Last Taken Type ALPRAZolam [Xanax TAB] 0.5 mg PO BID PRN #14 tab 12/05/17 Unknown Rx Folic Acid [Folvite] 1 mg PO QDAY 12/05/17 12/05/17 1 Day Ago History ~12/04/17 [place]-3/Dha/Epa/Fish Oil [Fish Oil 1 each PO QDAY 12/05/17 12/05/17 Unknown History 1,000 mg Softgel] Ubidecarenone/Vit E Acet [Co Q-10 1 each PO QDAY 12/05/17 12/05/17 1 Day Ago History 100 mg Softgel] ~12/04/17 Ibuprofen [Motrin 600 MG tab] 600 mg PO Q8H PRN #20 tablet 01/05/19 Unknown Rx Azithromycin [Zithromax Z-PEPITO] 250 mg PO DAILY #6 tablet 04/28/19 Unknown Rx Benzonatate [Tessalon Perles] 100 mg PO Q8HR PRN #20 capsule 04/28/19 Unknown Rx Ibuprofen [Motrin] 600 mg PO Q8H PRN #20 tablet 04/28/19 Unknown Rx Meloxicam [Mobic] 15 mg PO QDAY PRN #7 tablet 04/27/20 Unknown Rx methOCARBAMOL [Robaxin TAB] 1,500 mg PO Q8H PRN #20 tablet 04/27/20 Unknown Rx predniSONE [Deltasone] 20 mg PO BID 3 Days #6 tab 04/27/20 Unknown Rx PARoxetine [Paxil] 20 mg PO DAILY #16 tab 02/18/21 Unknown Rx ED Physical Exam - General Limitations: No Limitations General appearance: alert, in no apparent distress - Head Head exam: Present: atraumatic, normocephalic - Eye Eye exam: Present: normal appearance, PERRL, EOMI, other (Visual acuity intact to finger counting, color perception, reading at a close distance). Absent: nystagmus - ENT ENT exam: Present: normal exam, normal orophraynx, mucous membranes moist, normal external ear exam - Neck Neck exam: Present: normal inspection, full ROM. Absent: tenderness, meningismus - Respiratory Respiratory exam: Present: normal lung sounds bilaterally. Absent: respiratory distress, wheezes, rales, rhonchi, stridor - Cardiovascular Cardiovascular Exam: Present: regular rate, normal rhythm, normal heart sounds. Absent: bradycardia, tachycardia, irregular rhythm, systolic murmur, diastolic murmur, rubs, gallop - GI/Abdominal GI/Abdominal exam: Present: soft. Absent: distended, tenderness, guarding, rebound, rigid, pulsatile mass - Extremities Exam Extremities exam: Present: normal inspection, full ROM, other (2+ pulses noted in the bilateral upper and lower extremities. There is no palpable cord. negative Homans sign. Muscular compartments are soft. The pelvis is stable.). Absent: pedal edema, calf tenderness - Back Exam Back exam: Present: normal inspection, full ROM. Absent: tenderness, CVA tenderness (R), CVA tenderness (L), paraspinal tenderness, vertebral tenderness - Neurological Exam Neurological exam: Present: alert, oriented X3, normal gait, other (There is no facial droop. The tongue is midline. Extraocular movements are intact bilaterally. There is 5 out of 5 strength in bilateral upper and lower extremities. Sensation is intact to light touch bilateral upper and lower extremities. There is no past-pointing. There is no pronator drift.). Absent: motor sensory deficit - Psychiatric Psychiatric exam: Present: anxious - Skin Skin exam: Present: warm, dry, intact, normal color. Absent: rash ED Course Vital Signs 02/18/21 13:03 Temperature 98 F Pulse Rate 73 Respiratory 20 Rate Blood Pressure 117/83 [Right] O2 Sat by Pulse 100 Oximetry - Reevaluation(s) Reevaluation #1: 02/18/21 13:50 Reviewed patient's prior prescriptions. She has been on this medication since at least 2017. It is reasonable to give her a bridge prescription, pending primary care evaluation. ED Medical Decision Making - Lab Data Vital Signs 02/18/21 13:03 Temperature 98 F Pulse Rate 73 Respiratory 20 Rate Blood Pressure 117/83 [Right] O2 Sat by Pulse 100 Oximetry - EKG Data -: EKG Interpreted by Ia EKG shows normal: sinus rhythm Rate: normal - EKG Data Interpretation: unchanged when compared t (Unchanged from prior EKG from September 2019) 02/18/21 13:47 EKG interpreted at 13: 38 Sinus rhythm, rate 65 bpm. Normal axis, normal intervals, normal P wave axis, high left ventricular voltage, not a STEMI, unchanged from prior EKG. 02/18/21 13:48 - Medical Decision Making Differential diagnosis, including but not limited to: Medication refill, encounter for medical screening examination assessment and plan: 46-year-old female, who was afebrile, with reassuring vital signs, clinically sober, with a GCS of 15, NIH score of 0, PERC negative, no pulmonary embolism or DVT risk factors, low risk by Wells criteria, not currently tachycardic, tachypneic or hypoxic, presenting to the ER with a primary complaint of request for Paxil medication refill, secondary to running out of her medication, not having any refills, not be able to get an appointment with her outpatient primary care doctor until March 03. Patient has tried multiple ways to get this medication filled prior to presenting to the emergency room, including requesting refill over the phone, seeking telemedicine intervention, and has been unsuccessful. She reports that she has had withdrawal in the past, typically manifest by headache, nausea and dizziness. Her physical examination is benign and unremarkable. Her EKG is unchanged from prior. She presents as awake, alert, oriented, and exhibits sound mind and decision-making capacity. I informed the patient that I would be happy to do a one-time refill on Paxil, for 16 tablets, to get her through her appointment on March 03. However, I informed her that it would be very unlikely in the future that we would be able to refill Paxil prescription in the future, and she should make every effort to have this done by her outpatient provider. Patient articulated understanding Critical care attestation.: If time is entered above; I have spent that time in minutes in the direct care of this critically ill patient, excluding procedure time. ED Disposition Clinical Impression: Medication refill, Encounter for medical screening examination, History of dizziness Disposition: 01 HOME / SELF CARE / HOMELESS Is pt being admited?: No Does the pt Need Aspirin: No Condition: Good Additional Instructions: Please continue current outpatient medications. As we discussed, the patient will receive a one-time refill on her 20 mg Paxil prescription. However, in the future, the patient should make certain to have her outpatient maintenance medication prescriptions prescribed by her outpatient primary care doctor. Please return to the emergency room right away with new pain, worsened pain, migration of pain, projectile vomiting, change in mental status, confusion, inability to tolerate liquid feeds, new, worsened or different symptoms not present on the initial emergency room evaluation. Prescriptions: PARoxetine [Paxil] 20 mg PO DAILY #16 tab Referrals: [facility] [Provider Group] - as needed
== END 2021-02-18 14:18 | disposition home or self-care (01) ==
LOC: ED 12:54
DX: F41.9 Anxiety disorder, unspecified (principal); Z76.0 Encounter for issue of repeat prescription; R42 Dizziness and giddiness; Z88.2 Allergy status to sulfonamides; Z88.8 Allergy status to other drugs, medicaments and biological substances; Z79.899 Other long term (current) drug therapy
CPT/HCPCS: 93005; 99282